=== PATIENT | female | born 1985 | race African-American/Black ===

== ENCOUNTER 2018-09-12 14:20 | Observation (INO) ==
[2018-09-12 14:59] LABS: Basophils % 0.2 % (0.0-0.8); Hematocrit 42.6 VOL% (35.7-47.0); Hemoglobin 13.9 GM/DL (12.0-16.0); Immature Granulocytes % 0.4 %; Immature Granulocytes Absolute 0.07 #; Lymphocytes # 2.4 10*3/uL (1.4-4.0); Lymphocytes % 13.4 % (21.3-54.2); Mean Corpuscular HGB Conc 32.6 GM/DL (32-36); Mean Corpuscular Hemoglobin 29 PG (27-34); Mean Corpuscular Volume 89.9 FL (87-102); Mean Platelet Volume 10.9 FL (9.6-12.0); Monocytes # 1.1 10*3/uL (0.11-0.8); Neutrophils # 14.4 10*3/uL (1.4-7.4); Platelet Count 323 T/CUMM (130-400); Red Blood Count 4.74 MC/CUMM (3.8-5.5); Red Cell Distribution Width 13.3 % (9.3-17.3)
[2018-09-12 15:15] LABS: Apearance,Urine Slightly Hazy (Clear); Bacteria,Urine Occasional /HPF (Few); Bilirubin,Urine Negative (Negative); Blood, Urine Large mg/dL (Negative); Glucose,Urine (UA) 150 mg/dL (Negative); Hyaline Casts,Urine 9 /LPF (0-3); Ketones,Urine 80 mg/dL (Negative); Mucus,Urine Many /LPF (Occasional); Nitrite,Urine Negative (Negative); Protein,Urine 100 MG/DL; RBC,Urine 3 /HPF (0-4); Squamous Epithelial Cell,Urine Occasional /HPF (0-10); Urine Color Yellow (Yellow); Urine Specific Gravity 1.028 (1.001-1.035); Urine Urobilinogen < 2.0 EU/DL (0.2-1.0); WBC,Urine 20 /HPF (0-6); White Blood Cell Casts,Urine 13 /LPF (<1)
[2018-09-12 15:20] LABS: Barbiturates Screen,Urine Negative (Negative); Benzodiazepines Screen,Urine Negative (Negative); Cannabinoid Screen,Urine Positive (Negative); Opiate Screen,Urine Negative (Negative); Phencyclidine Screen,Urine Negative (Negative)
[2018-09-12 15:48] LABS: Alanine Aminotransferase 17 U/L (13-56); Albumin 4.2 G/DL (3.4-5.0); Alkaline Phosphatase 62 U/L (45-117); Aspartate Amino Transferase 12 U/L (0-37); Bilirubin,Total < 0.39 MG/DL (0.2-1.0); Blood Urea Nitrogen 10 MG/DL (7-18); Calcium 9.5 MG/DL (8.5-10.1); Glucose 139 MG/DL (74-106); Osmolality,Calculated 281.3 MOS/KG (273-304); Potassium 3.6 MMOL/L (3.5-5.1); Sodium 141 MMOL/L (136-145); Total Protein 8.9 G/DL (6.4-8.3)
[2018-09-12] MEDS ORDERED: ONDANSETRON 4 MG/2 ML VIAL IV STA (17:09)
[2018-09-12] MEDS ORDERED: SODIUM CHLORIDE 0.9% 1,000 ML IV STA (17:09)
[2018-09-12] MEDS ORDERED: PANTOPRAZOLE 40 MG VIAL IV STA (17:09)
[2018-09-12] MEDS ORDERED: METOCLOPRAMIDE 10 MG/2 ML VIAL IV STA (17:09)
[2018-09-12] MEDS ORDERED: LEVOFLOXACIN INJ 750 MG in PREMIX 1 EACH IV STA (17:24)
[2018-09-12] MEDS ORDERED: PROMETHAZINE 25 MG/1 ML VIAL IM STA (17:30)
[2018-09-12] MEDS ORDERED: LORazepam 2 MG/1 ML VIAL IV STA (18:19)
[2018-09-12 18:25] LABS: Albumin 3.8 G/DL (3.4-5.0); Bilirubin,Total 0.4 MG/DL (0.2-1.0); Calcium 9.5 MG/DL (8.5-10.1); Osmolality,Calculated 279.5 MOS/KG (273-304); Total Protein 8.9 G/DL (6.4-8.3)
[2018-09-12 18:28] LABS: Lactic Acid 2.4 MMOL/L (0.4-2.0)
[2018-09-12] MEDS ORDERED: ONDANSETRON 4 MG/2 ML VIAL IV PRN (18:42)
[2018-09-12] MEDS ORDERED: GLUCAGON 1 MG VIAL IM PRN (18:44)
[2018-09-12] MEDS ORDERED: DEXTROSE 50% 25 GM/50 ML VIAL IV PRN (18:44)
[2018-09-12] MEDS ORDERED: INSULIN REGULAR 100 UNIT/ML SUBCUT STA (18:44)
[2018-09-12] MEDS ORDERED: LORazepam 2 MG/1 ML VIAL IV PRN (18:58)
[2018-09-12] MEDS: SODIUM CHLORIDE 0.9% 1,000 ML IV SCH (20:46)
[2018-09-12] MEDS: ENOXAPARIN 40 MG/0.4 ML SYRINGE SUBCUT SCH (23:08)
[2018-09-12] MEDS: INSULIN REGULAR 100 UNIT/ML SUBCUT SCH (23:09)
[2018-09-12] MEDS: METOCLOPRAMIDE 10 MG/2 ML VIAL IV SCH (23:09)
[2018-09-12] MEDS: INSULIN GLARGINE 100 UNIT/ML SUBCUT SCH (23:10)
[2018-09-13 00:35] LABS: Calcium 8.5 MG/DL (8.5-10.1); Osmolality,Calculated 285.3 MOS/KG (273-304); Potassium 3.6 MMOL/L (3.5-5.1)
[2018-09-13] MEDS: SODIUM CHLORIDE 0.9% 1,000 ML IV SCH ×6 (03:30→21:22)
[2018-09-13 03:48] LABS: Basophils % 0.2 % (0.0-0.8); Eosinophils % 0.1 % (0.00-10.9); Hematocrit 34.5 VOL% (35.7-47.0); Hemoglobin 11.5 GM/DL (12.0-16.0); Immature Granulocytes % 0.3 %; Immature Granulocytes Absolute 0.04 #; Lymphocytes # 2.3 10*3/uL (1.4-4.0); Lymphocytes % 16.8 % (21.3-54.2); Mean Corpuscular HGB Conc 33.3 GM/DL (32-36); Mean Corpuscular Hemoglobin 30 PG (27-34); Mean Corpuscular Volume 89.8 FL (87-102); Mean Platelet Volume 10.9 FL (9.6-12.0); Monocytes % 6.9 % (1.7-12.7); Neutrophils # 10.6 10*3/uL (1.4-7.4); Neutrophils % 75.7 % (38.7-73.9); Platelet Count 275 T/CUMM (130-400); Red Blood Count 3.84 MC/CUMM (3.8-5.5); Red Cell Distribution Width 13.2 % (9.3-17.3); White Blood Count 13.9 T/CUMM (4-12)
[2018-09-13 04:22] LABS: Calcium 8.3 MG/DL (8.5-10.1); Potassium 3.5 MMOL/L (3.5-5.1)
[2018-09-13] MEDS: METOCLOPRAMIDE 10 MG/2 ML VIAL IV SCH ×3 (06:20→17:35)
[2018-09-13] MEDS: INSULIN REGULAR 100 UNIT/ML SUBCUT SCH ×4 (07:18→21:19)
[2018-09-13] MEDS: PANTOPRAZOLE 40 MG VIAL IV SCH (08:05)
[2018-09-13] MEDS ORDERED: LEVOFLOXACIN INJ 500 MG in PREMIX 1 EACH IV SCH (17:00)
[2018-09-13] MEDS: ENOXAPARIN 40 MG/0.4 ML SYRINGE SUBCUT SCH (21:20)
[2018-09-13] MEDS: INSULIN GLARGINE 100 UNIT/ML SUBCUT SCH (21:20)
[2018-09-14] MEDS: METOCLOPRAMIDE 10 MG/2 ML VIAL IV SCH ×2 (00:21→05:48)
[2018-09-14] MEDS: SODIUM CHLORIDE 0.9% 1,000 ML IV SCH ×2 (02:46→05:23)
[2018-09-14 05:08] LABS: Calcium 7.4 MG/DL (8.5-10.1); Osmolality,Calculated 278.3 MOS/KG (273-304); Potassium 3.4 MMOL/L (3.5-5.1)
[2018-09-14] MEDS: INSULIN REGULAR 100 UNIT/ML SUBCUT SCH ×2 (08:35→11:48)
[2018-09-14] MEDS: PANTOPRAZOLE 40 MG VIAL IV SCH (09:11)
[2018-09-14] MEDS ORDERED: POTASSIUM CHLORIDE 20 MEQ TABLET PO ONE (09:30)
[2018-09-14] MEDS ORDERED: ONDANSETRON ODT 4 MG TABLET PO PRN (09:32)
[2018-09-14] MEDS ORDERED: LEVOFLOXACIN 250 MG TABLET PO SCH (10:00)
[2018-09-14 11:10] VITALS: BP 139/86
[2018-09-14] MEDS ORDERED: METOCLOPRAMIDE 5 MG TABLET PO SCH (11:30)
== END 2018-09-14 13:30 ==
LOC: N.EDINP 14:20 → N.ED 14:20 → SUATTDRO 18:42 → N.ICU 19:22
PROVIDERS: ADMIT Internal Medicine Cardiovascular Disease; ATTEND Hospitalist

== ENCOUNTER 2018-10-30 18:16 | Observation (INO) ==
[2018-10-30] MEDS ORDERED: METOCLOPRAMIDE 10 MG/2 ML VIAL IV STA (19:05)
[2018-10-30] MEDS ORDERED: DICYCLOMINE 20 MG/2 ML AMP IM ONE (19:05)
[2018-10-30] MEDS ORDERED: SODIUM CHLORIDE 0.9% 1,000 ML IV STA ×2 (19:05→21:43)
[2018-10-30] MEDS ORDERED: ONDANSETRON 4 MG/2 ML VIAL IV STA (19:05)
[2018-10-30 20:49] LABS: Basophils % 0.3 % (0.0-0.8); Hematocrit 43.4 VOL% (35.7-47.0); Hemoglobin 14.3 GM/DL (12.0-16.0); Immature Granulocytes % 0.3 %; Immature Granulocytes Absolute 0.04 #; Lymphocytes # 1.8 10*3/uL (1.4-4.0); Lymphocytes % 14.8 % (21.3-54.2); Mean Corpuscular HGB Conc 32.9 GM/DL (32-36); Mean Corpuscular Hemoglobin 30 PG (27-34); Mean Corpuscular Volume 89.9 FL (87-102); Mean Platelet Volume 11.1 FL (9.6-12.0); Monocytes # 0.6 10*3/uL (0.11-0.8); Monocytes % 4.6 % (1.7-12.7); Neutrophils # 9.6 10*3/uL (1.4-7.4); Platelet Count 331 T/CUMM (130-400); Red Blood Count 4.83 MC/CUMM (3.8-5.5); Red Cell Distribution Width 12.9 % (9.3-17.3); White Blood Count 12.1 T/CUMM (4-12)
[2018-10-30 20:59] LABS: Albumin 4.1 G/DL (3.4-5.0); Bilirubin,Total 0.5 MG/DL (0.2-1.0); Calcium 9.7 MG/DL (8.5-10.1); Potassium 3.2 MMOL/L (3.5-5.1); Total Protein 9.2 G/DL (6.4-8.3)
[2018-10-30 21:26] LABS: Apearance,Urine Slightly Hazy (Clear); Bacteria,Urine Occasional /HPF (Few); Bilirubin,Urine Negative (Negative); Blood, Urine Small mg/dL (Negative); Glucose,Urine (UA) 50 mg/dL (Negative); Ketones,Urine 80 mg/dL (Negative); Mucus,Urine Many /LPF (Occasional); Nitrite,Urine Negative (Negative); Protein,Urine 100 MG/DL; RBC,Urine 5 /HPF (0-4); Squamous Epithelial Cell,Urine Occasional /HPF (0-10); Urine Color Amber (Yellow); Urine Specific Gravity 1.038 (1.001-1.035); Urine Urobilinogen < 2.0 EU/DL (0.2-1.0); WBC,Urine 17 /HPF (0-6)
[2018-10-30 21:38] LABS: Barbiturates Screen,Urine Negative (Negative); Benzodiazepines Screen,Urine Negative (Negative); Cannabinoid Screen,Urine Positive (Negative); Opiate Screen,Urine Negative (Negative); Phencyclidine Screen,Urine Negative (Negative)
[2018-10-30] MEDS ORDERED: AMPICILLIN/SULBACTAM 3,000 MG in SODIUM CHLORIDE 0.9% 100 ML IV STA (22:21)
[2018-10-31] MEDS ORDERED: ZALEPLON 5 MG CAPSULE PO PRN (01:06)
[2018-10-31] MEDS ORDERED: ONDANSETRON 4 MG/2 ML VIAL IV PRN (01:06)
[2018-10-31] MEDS ORDERED: DOCUSATE SODIUM 100 MG CAPSULE PO PRN (01:06)
[2018-10-31] MEDS ORDERED: ACETAMINOPHEN 325 MG TABLET PO PRN (01:06)
[2018-10-31] MEDS ORDERED: MAGNESIUM SULF RIDER 2 GM in PREMIX 1 EACH IV PRN (01:15)
[2018-10-31] MEDS ORDERED: POTASSIUM CHLORIDE RIDER 10 MEQ in PREMIX 1 EACH IV PRN (01:15)
[2018-10-31] MEDS ORDERED: MAGNESIUM SULF RIDER 4 GM in PREMIX 1 EACH IV PRN (01:15)
[2018-10-31] MEDS ORDERED: DEXTROSE 50% 25 GM/50 ML SYRINGE IV PRN (01:24)
[2018-10-31] MEDS ORDERED: GLUCAGON 1 MG VIAL IM PRN (01:24)
[2018-10-31] MEDS: SODIUM CHLORIDE 0.9% 1,000 ML IV SCH ×2 (04:09→20:48)
[2018-10-31] MEDS ORDERED: PROMETHAZINE 25 MG/1 ML VIAL IM PRN (04:17)
[2018-10-31] MEDS ORDERED: MORPHINE 4 MG/1 ML VIAL IV PRN (04:18)
[2018-10-31] MEDS: cefTRIAXone 1,000 MG in SYRINGE 1 EACH IV SCH (04:22)
[2018-10-31 06:03] LABS: Basophils % 0.3 % (0.0-0.8); Hematocrit 43.2 VOL% (35.7-47.0); Hemoglobin 13.8 GM/DL (12.0-16.0); Immature Granulocytes % 0.4 %; Immature Granulocytes Absolute 0.04 #; Lymphocytes # 1.8 10*3/uL (1.4-4.0); Lymphocytes % 16.7 % (21.3-54.2); Mean Corpuscular HGB Conc 31.9 GM/DL (32-36); Mean Corpuscular Hemoglobin 30 PG (27-34); Mean Corpuscular Volume 92.7 FL (87-102); Mean Platelet Volume 11.7 FL (9.6-12.0); Monocytes # 0.5 10*3/uL (0.11-0.8); Monocytes % 4.5 % (1.7-12.7); Neutrophils # 8.5 10*3/uL (1.4-7.4); Neutrophils % 78.1 % (38.7-73.9); Platelet Count 235 T/CUMM (130-400); Red Blood Count 4.66 MC/CUMM (3.8-5.5); Red Cell Distribution Width 13.1 % (9.3-17.3); White Blood Count 10.8 T/CUMM (4-12)
[2018-10-31 07:16] LABS: Osmolality,Calculated 280.4 MOS/KG (273-304); Potassium 3.3 MMOL/L (3.5-5.1)
[2018-10-31] MEDS: ENOXAPARIN 40 MG/0.4 ML SYRINGE SUBCUT SCH (09:18)
[2018-10-31] MEDS: INSULIN GLARGINE 100 UNIT/ML SUBCUT SCH (09:18)
[2018-10-31] MEDS: PANTOPRAZOLE 40 MG TABLET PO SCH (09:18)
[2018-10-31] MEDS: METOCLOPRAMIDE 10 MG/10 ML UDCUP PO SCH ×3 (09:18→17:15)
[2018-10-31] MEDS: INSULIN REGULAR 100 UNIT/ML SUBCUT SCH ×4 (09:19→22:19)
[2018-11-01] MEDS: SODIUM CHLORIDE 0.9% 1,000 ML IV SCH ×2 (03:15→06:10)
[2018-11-01] MEDS: cefTRIAXone 1,000 MG in SYRINGE 1 EACH IV SCH (05:23)
[2018-11-01 05:24] LABS: Basophils % 0.5 % (0.0-0.8); Eosinophils # 0.1 10*3/uL (0.0-0.87); Eosinophils % 0.8 % (0.00-10.9); Hematocrit 36.9 VOL% (35.7-47.0); Hemoglobin 12.1 GM/DL (12.0-16.0); Immature Granulocytes % 0.3 %; Immature Granulocytes Absolute 0.02 #; Lymphocytes # 3.8 10*3/uL (1.4-4.0); Lymphocytes % 49.2 % (21.3-54.2); Mean Corpuscular HGB Conc 32.8 GM/DL (32-36); Mean Corpuscular Hemoglobin 30 PG (27-34); Mean Corpuscular Volume 92.3 FL (87-102); Mean Platelet Volume 10.7 FL (9.6-12.0); Monocytes # 0.4 10*3/uL (0.11-0.8); Neutrophils # 3.4 10*3/uL (1.4-7.4); Neutrophils % 44.2 % (38.7-73.9); Platelet Count 225 T/CUMM (130-400); Red Cell Distribution Width 12.9 % (9.3-17.3); White Blood Count 7.7 T/CUMM (4-12)
[2018-11-01 05:55] LABS: Calcium 7.6 MG/DL (8.5-10.1); Potassium 3.1 MMOL/L (3.5-5.1)
[2018-11-01] MEDS: METOCLOPRAMIDE 10 MG/10 ML UDCUP PO SCH ×2 (08:41→13:10)
[2018-11-01] MEDS: ENOXAPARIN 40 MG/0.4 ML SYRINGE SUBCUT SCH (08:41)
[2018-11-01] MEDS: INSULIN GLARGINE 100 UNIT/ML SUBCUT SCH (08:41)
[2018-11-01] MEDS: PANTOPRAZOLE 40 MG TABLET PO SCH (08:41)
[2018-11-01] MEDS ORDERED: POTASSIUM CHLORIDE 20 MEQ/15 ML UDCUP PO ONE (11:26)
[2018-11-01] MEDS: INSULIN REGULAR 100 UNIT/ML SUBCUT SCH (13:09)
[2018-11-01 13:29] VITALS: BP 114/66
== END 2018-11-01 13:56 | disposition home or self-care (01) ==
LOC: EDBD → EDUNIT# → N.ED 18:16 → N.EDINP 18:16 → N.5E 10-31 03:39
PROVIDERS: ADMIT Internal Medicine; ATTEND Internal Medicine